=== PATIENT | female | born 1970 | race Caucasian/White ===

== ENCOUNTER 2020-11-05 11:40 | Outpatient (CLI) | payer BC ==
--- NOTE | 2020-11-05 13:00 | MMO ---
Bilateral MAMMO Bilat Screen [facility]. CLINICAL HISTORY: Patient is 50 years old and is seen for screening. The patient has no family history of breast cancer. The patient has no personal history of cancer. VIEWS: The views performed were: bilateral craniocaudal with tomosynthesis and bilateral mediolateral oblique with tomosynthesis. FILMS COMPARED: The present examination has been compared to prior imaging studies performed at [facility] on 09/23/2010, 12/04/2013 and 12/23/2016. This study has been interpreted with the assistance of computer-aided detection. MAMMOGRAM FINDINGS: There are scattered fibroglandular densities. There are stable benign appearing calcifications seen in both breasts. There are no suspicious masses, suspicious calcifications, or new areas of architectural distortion. IMPRESSION: THERE IS NO MAMMOGRAPHIC EVIDENCE OF MALIGNANCY. A ROUTINE FOLLOW-UP MAMMOGRAM IN 1 YEAR IS RECOMMENDED. THE RESULTS OF THIS EXAM WERE SENT TO THE PATIENT. ACR BI-RADS Category 2 - Benign finding MAMMOGRAPHY NOTE: 1. A negative mammogram report should not delay a biopsy if a dominant of clinically suspicious mass is present. 2. Approximately 10% to 15% of breast cancers are not detected by mammography. 3. Adenosis and dense breasts may obscure an underlying neoplasm. Reported by: BREE ALAN MD Electonically Signed: [id number]
== END 2020-11-05 11:41 | disposition home or self-care (01) ==
LOC: BICMAMMO 11:40
DX: Z12.31 Encounter for screening mammogram for malignant neoplasm of breast (principal)
CPT/HCPCS: 77063; 77067

== ENCOUNTER 2021-07-07 14:07 | Outpatient (CLI) | payer BC | END 2021-07-07 14:08 | disposition home or self-care (01) | LOC: BICRAD 14:07 | PROVIDERS: ATTEND Nurse Practitioner Family | DX: R05 Cough (principal); Z86.16 Personal history of COVID-19 | CPT/HCPCS: 71046 ==

== ENCOUNTER 2022-01-26 13:03 | Outpatient (CLI) | payer BC | END 2022-01-26 13:04 | disposition home or self-care (01) | LOC: BICULT 13:03 | PROVIDERS: ATTEND Nurse Practitioner Family | DX: E03.9 Hypothyroidism, unspecified (principal); E34.9 Endocrine disorder, unspecified; R22.9 Localized swelling, mass and lump, unspecified; R79.9 Abnormal finding of blood chemistry, unspecified; D45 Polycythemia vera; Z79.52 Long term (current) use of systemic steroids; Z79.890 Hormone replacement therapy | CPT/HCPCS: 76536 ==

== ENCOUNTER 2022-06-27 15:02 | Outpatient (CLI) | payer BC | END 2022-06-27 15:03 | disposition home or self-care (01) | LOC: BICRAD 15:02 | PROVIDERS: ATTEND Nurse Practitioner Family | DX: R05.9 Cough, unspecified (principal); Z86.16 Personal history of COVID-19 | CPT/HCPCS: 71046 ==